=== PATIENT | female | born 1965 | race Caucasian/White ===

== ENCOUNTER 2023-04-03 08:26 | Inpatient (IN) ==
[2023-04-03] MEDS ORDERED: LIDOCAINE 1% 10 ML VIAL SQ ONE (08:27)
[2023-04-03] MEDS ORDERED: IOPAMIDOL 100 ML BOTTLE IV ONE (08:27)
[2023-04-03] MEDS ORDERED: diphenhydrAMINE 50 MG/ML VIAL IV ONE (08:54)
[2023-04-03] MEDS ORDERED: PROMETHAZINE 25 MG/ML VIAL IV ONE (08:54)
[2023-04-03] MEDS ORDERED: 0.9 % SODIUM CHLORIDE 1,000 ML IV ONE ×2 (08:54→09:16)
[2023-04-03] MEDS ORDERED: METOCLOPRAMIDE 10 MG/2 ML VIAL IV ONE (08:54)
[2023-04-03 09:10] LABS: POC Calcium, Ionized 1.12 (1.16-1.32); POC Creatinine 1.1 (0.6-1.2); POC Potassium 3.7 (3.3-5.1)
[2023-04-03 12:35] LABS: Basophils # (Auto) 0.02 K/mcL (0.00-0.30); Basophils % (Auto) 0.2 % (0.0-2.0); Eosinophils # (Auto) 0.09 K/mcL (0.00-0.70); Eosinophils % (Auto) 1.1 % (0.0-7.0); Hematocrit 35.6 % (34.1-44.9); Hemoglobin 10.8 g/dL (11.2-15.7); Lymphocytes # (Auto) 0.53 K/mcL (1.50-4.80); Lymphocytes % (Auto) 6.2 % (15.5-49.0); Mean Cell Volume 88.6 fL (80.0-100.0); Mean Corpuscular HGB Conc 30.3 g/dL (31.0-36.0); Mean Platelet Volume 9.2 fL (8.8-12.5); Monocytes # (Auto) 0.88 K/mcL (0.10-0.90); Monocytes % (Auto) 10.3 % (1.0-12.0); Neutrophils % (Auto) 81.6 % (38.0-78.0); Platelet Count 207 K/mcL (140-440); RBC 4.02 M/mcL (3.59-5.38); Red Cell Distribution Width 13.7 % (11.5-14.5); WBC 8.6 K/mcL (4.5-11.0)
[2023-04-03] MEDS ORDERED: ACETAMINOPHEN 1,000 MG/100 ML BAG IV ONE (14:34)
[2023-04-03] MEDS ORDERED: cefTRIAXone 2 GM in DEXTROSE 5% IN WATER 50 ML IV ONE (15:10)
[2023-04-03] MEDS ORDERED: VANCOMYCIN PER PHARMACY IV ONE (15:10)
[2023-04-03] MEDS ORDERED: AMPICILLIN SODIUM 2 GM VIAL IV SCH ×2 (15:15→19:30)
[2023-04-03] MEDS ORDERED: FUROSEMIDE 20 MG/2 ML VIAL IV ONE (15:48)
[2023-04-03 16:12] LABS: Alcohol, Blood < 10.0 mg/dL; Alcohol,Blood < 0.010 gm/dL (<0.010)
[2023-04-03 16:18] LABS: ALT/SGPT 13 U/L (<40); AST/SGOT 17 U/L (<32); Albumin 3.8 gm/dL (3.2-5.2); Alkaline Phosphatase 19 U/L (39-117); Bilirubin,Direct < 0.2 mg/dL (0-0.3); Bilirubin,Total 0.3 mg/dL (0.1-1.0); Globulin 2.9 gm/dL (2.2-3.7)
[2023-04-03] MEDS ORDERED: MIDAZOLAM 5 MG/5 ML VIAL IV ONE (16:25)
[2023-04-03] MEDS ORDERED: MIDAZOLAM 2 MG/2 ML VIAL ONE (16:26)
[2023-04-03] MEDS ORDERED: MIDAZOLAM 2 MG/2 ML VIAL IV ONE (16:30)
[2023-04-03] MEDS ORDERED: VANCOMYCIN 1,500 MG in 0.9 % SODIUM CHLORIDE 500 ML IV ONE (16:30)
[2023-04-03 16:42] LABS: Free T4 (Free Thyroxine) 1.28 ng/dL (0.93-1.70)
[2023-04-03 16:45] LABS: Thyroid Stimulating Hormone 2.28 uIU/mL (0.27-5.01)
[2023-04-03] MEDS ORDERED: AMPICILLIN SODIUM 2 GM in 0.9 % SODIUM CHLORIDE 100 ML IV ONE (17:15)
[2023-04-03] MEDS ORDERED: ACYCLOVIR SODIUM 500 MG VIAL IV STA (17:22)
[2023-04-03] MEDS ORDERED: ACYCLOVIR SODIUM 1,000 MG in 0.9 % SODIUM CHLORIDE 250 ML IV ONE (17:30)
[2023-04-03 18:12] LABS: Appearance,Urine CLEAR (Clear); Bilirubin,Urine Negative (Negative); Color,Urine YELLOW; Culture Indicated,Urine No; Glucose,Urine (UA) Negative (Negative); Ketones,Urine Negative (Negative); Leukocyte Esterase,Urine Negative /uL (Negative); Nitrate,Urine Negative (Negative); Protein,Urine Negative (Negative); Specific Gravity,Urine 1.029 (1.000-1.035); Urine Blood Negative (Negative); Urine RBC 0 /hpf (0-3); Urine Squamous Epithelial Cell 0 /hpf (0-4); Urine WBC < 1 /hpf (0-4); Urobilinogen,Urine Negative
[2023-04-03 18:26] LABS: Amphetamine Screen,Urine None detected; Barbiturate Screen,Urine None detected; Benzodiazepines Screen,Urine None detected; Cannabinoid Screen,Urine None detected; Cocaine Screen,Urine None detected; Opiate Screen,Urine None detected; Oxycodone, Urine Screen None detected; Phencyclidine Screen,Urine None detected
[2023-04-03 19:06] LABS: Glucose,CSF 50 mg/dL (40-70)
[2023-04-03 19:10] LABS: Appearance,CSF Clear; Nucleated Cells,CSF 2 /cumm (0-5); Red Blood Cell,CSF 14 /cumm (0-1)
[2023-04-03] MEDS ORDERED: oxyCODONE/APAP 5/325MG TABLET PO PRN (19:11)
[2023-04-03] MEDS ORDERED: ZOLPIDEM 5 MG TABLET PO PRN (19:11)
[2023-04-03] MEDS ORDERED: ONDANSETRON 4 MG ODT TABLET SL PRN (19:11)
[2023-04-03] MEDS ORDERED: MAGNESIUM HYDROXIDE 30 ML ORAL.SUSP PO PRN (19:11)
[2023-04-03] MEDS ORDERED: SENNOSIDES 1 TABLET PO PRN (19:11)
[2023-04-03] MEDS ORDERED: VANCOMYCIN 1,000 MG in 0.9 % SODIUM CHLORIDE 250 ML IV SCH (19:15)
[2023-04-03] MEDS ORDERED: cefTRIAXone 2 GM in DEXTROSE 5% IN WATER 50 ML IV SCH (19:15)
[2023-04-03] MEDS ORDERED: ALPRAZolam 0.5 MG TABLET PO PRN (19:24)
[2023-04-03] MEDS ORDERED: IPRATROPIUM/ALBUTEROL 3 ML AMPUL.NEB NEB ONE (19:33)
[2023-04-03] MEDS: LACTATED RINGERS 1,000 ML IV SCH (20:36)
[2023-04-03] MEDS: ACETAMINOPHEN 325 MG TABLET PO PRN (21:22)
[2023-04-03] MEDS ORDERED: ACYCLOVIR SODIUM 500 MG VIAL IV SCH (22:00)
[2023-04-03] MEDS: 0.9 % SODIUM CHLORIDE 10 ML SYRINGE IV SCH (23:02)
[2023-04-04] MEDS: HYDROcodone/APAP 10/325MG TABLET PO PRN ×3 (02:02→17:11)
[2023-04-04] MEDS: 0.9 % SODIUM CHLORIDE 10 ML SYRINGE IV SCH ×4 (05:47→20:45)
[2023-04-04] MEDS: LACTATED RINGERS 1,000 ML IV SCH ×3 (05:47→16:49)
[2023-04-04 06:08] LABS: Basophils # (Auto) 0.02 K/mcL (0.00-0.30); Basophils % (Auto) 0.3 % (0.0-2.0); Eosinophils # (Auto) 0.01 K/mcL (0.00-0.70); Eosinophils % (Auto) 0.2 % (0.0-7.0); Hemoglobin 10.1 g/dL (11.2-15.7); Lymphocytes # (Auto) 0.91 K/mcL (1.50-4.80); Lymphocytes % (Auto) 14.2 % (15.5-49.0); Mean Cell Volume 89.7 fL (80.0-100.0); Mean Corpuscular HGB Conc 30.6 g/dL (31.0-36.0); Mean Platelet Volume 9.1 fL (8.8-12.5); Monocytes # (Auto) 1.03 K/mcL (0.10-0.90); Monocytes % (Auto) 16.1 % (1.0-12.0); Neutrophils % (Auto) 68.6 % (38.0-78.0); Platelet Count 162 K/mcL (140-440); RBC 3.68 M/mcL (3.59-5.38); Red Cell Distribution Width 14.5 % (11.5-14.5); WBC 6.4 K/mcL (4.5-11.0)
[2023-04-04 06:35] LABS: Blood Urea Nitrogen 15 mg/dL (6-20); Calcium 8.4 mg/dL (8.6-10.4); Carbon Dioxide 25 mmol/L (22-30); Chloride 99 mmol/L (96-108); Glomerular Filtration Rate 62; Glucose 100 mg/dL (70-105); Phosphorous 5.4 mg/dL (2.5-4.5)
[2023-04-04] MEDS: OMEPRAZOLE 20 MG CAPSULE PO SCH (07:36)
[2023-04-04] MEDS: ACETAMINOPHEN 325 MG TABLET PO PRN ×2 (07:36→14:31)
[2023-04-04] MEDS ORDERED: RIZATRIPTAN 10 MG PO PRN (14:51)
[2023-04-04] MEDS: metFORMIN 500 MG TABLET PO SCH (16:51)
[2023-04-04] MEDS: ONDANSETRON 4 MG/2 ML VIAL IV PRN (17:10)
[2023-04-04] MEDS: HYDROXYCHLOROQUINE 200 MG TABLET PO SCH (20:40)
[2023-04-04] MEDS ORDERED: SIMVASTATIN 20 MG TABLET PO SCH (21:00)
[2023-04-05] MEDS: ONDANSETRON 4 MG/2 ML VIAL IV PRN ×2 (00:42→05:51)
[2023-04-05] MEDS: HYDROcodone/APAP 10/325MG TABLET PO PRN ×3 (01:00→10:05)
[2023-04-05] MEDS: LACTATED RINGERS 1,000 ML IV SCH (02:21)
[2023-04-05] MEDS: ACETAMINOPHEN 325 MG TABLET PO PRN (05:02)
[2023-04-05] MEDS: 0.9 % SODIUM CHLORIDE 10 ML SYRINGE IV SCH (05:04)
[2023-04-05] MEDS: OMEPRAZOLE 20 MG CAPSULE PO SCH (07:39)
[2023-04-05] MEDS: metFORMIN 500 MG TABLET PO SCH (07:39)
[2023-04-05] MEDS ORDERED: predniSONE 5 MG TABLET PO SCH (08:00)
[2023-04-05] MEDS: HYDROXYCHLOROQUINE 200 MG TABLET PO SCH (08:23)
[2023-04-05] MEDS ORDERED: DULoxetine 30 MG CAPSULE PO SCH (09:00)
[2023-04-05] MEDS ORDERED: [UNRECOGNIZED DRUG - OTHER] PO SCH (09:00)
[2023-04-05] MEDS ORDERED: amLODIPine 5 MG TABLET PO SCH (09:00)
[2023-04-05] MEDS ORDERED: FOLIC ACID 1 MG TABLET PO SCH (09:00)
== END 2023-04-05 10:50 | disposition home or self-care (01) | DRG 177 ==
LOC: ED 08:26 → ICU 20:57
PROVIDERS: ADMIT Internal Medicine; ATTEND Internal Medicine

== ENCOUNTER 2024-05-26 19:08 | Inpatient (IN) ==
[2024-05-26] MEDS: 0.9 % SODIUM CHLORIDE 1,000 ML IV ONE (19:35)
[2024-05-26] MEDS: ACETAMINOPHEN 1,000 MG/100 ML BAG IV ONE (19:43)
[2024-05-26 20:12] LABS: ABG Methemoglobin 0.1 % (0.4-1.5); Total Hemoglobin 11.8 gm/Dl (12.0-15.0); VBG Base Excess -4 (-2-3); VBG HCO3 20.3 mmol/L (24.0-28.0); VBG Oxygen Saturation 72.1 % (40.0-70.0); VBG PCO2 33.6 mmHg (41.0-51.0); VBG PO2 39.4 mmHg (25.0-40.0); VBG Total CO2 21.3 mmol/L (25.0-29.0)
[2024-05-26 20:14] LABS: Basophils # (Auto) 0.03 K/mcL (0.00-0.30); Basophils % (Auto) 0.3 % (0.0-2.0); Eosinophils # (Auto) 0.05 K/mcL (0.00-0.70); Eosinophils % (Auto) 0.4 % (0.0-7.0); Hematocrit 32.8 % (34.1-44.9); Hemoglobin 10.2 g/dL (11.2-15.7); Lymphocytes # (Auto) 1.03 K/mcL (1.50-4.80); Lymphocytes % (Auto) 8.9 % (15.5-49.0); Mean Cell Volume 84.5 fL (80.0-100.0); Mean Corpuscular HGB Conc 31.1 g/dL (31.0-36.0); Mean Platelet Volume 9.8 fL (8.8-12.5); Monocytes # (Auto) 1.25 K/mcL (0.10-0.90); Monocytes % (Auto) 10.8 % (1.0-12.0); Neutrophils % (Auto) 79.3 % (38.0-78.0); Platelet Count 203 K/mcL (140-440); RBC 3.88 M/mcL (3.59-5.38); WBC 11.6 K/mcL (4.5-11.0)
[2024-05-26 20:20] LABS: INR 1.5 (0.9-1.1)
[2024-05-26 20:26] LABS: ALT/SGPT 11 U/L (<40); AST/SGOT 18 U/L (<32); Albumin 3.9 gm/dL (3.2-5.2); Albumin/Globulin Ratio 1.6 (1.0-2.3); Alkaline Phosphatase 22 U/L (39-117); Bilirubin,Total 0.4 mg/dL (0.1-1.0); Blood Urea Nitrogen 8 mg/dL (6-20); Carbon Dioxide 22 mmol/L (22-30); Chloride 92 mmol/L (96-108); Globulin 2.5 gm/dL (2.2-3.7); Glomerular Filtration Rate 81; Glucose 110 mg/dL (70-105); Potassium 3.1 mmol/L (3.3-5.1); Sodium 131 mmol/L (133-145)
[2024-05-26 21:15] LABS: Appearance,Urine CLEAR (Clear); Bilirubin,Urine Negative (Negative); Color,Urine YELLOW; Glucose,Urine (UA) Negative (Negative); Ketones,Urine 5 mg/dL (Negative); Leukocyte Esterase,Urine Negative /uL (Negative); Mucus,Urine FEW /hpf; Nitrate,Urine Negative (Negative); Protein,Urine 30 mg/dL (Negative); Specific Gravity,Urine 1.015 (1.000-1.035); Urine Blood Negative (Negative); Urine Hyaline Cast 1 /lph (0-2); Urine RBC 1 /hpf (0-3); Urine Squamous Epithelial Cell < 1 /hpf (0-4); Urine WBC 1 /hpf (0-4); Urobilinogen,Urine Negative
[2024-05-26 21:33] LABS: Amphetamine Screen,Urine None detected; Barbiturate Screen,Urine None detected; Benzodiazepines Screen,Urine None detected; Cannabinoid Screen,Urine None detected; Cocaine Screen,Urine None detected; Fentanyl, Urine Screen None Detected; Opiate Screen,Urine Suspect Positive; Oxycodone, Urine Screen None detected; Phencyclidine Screen,Urine None detected
[2024-05-26] MEDS: cefTRIAXone 2 GM in DEXTROSE 5% IN WATER 50 ML IV ONE (21:57)
[2024-05-26] MEDS: DOXYCYCLINE 100 MG in DEXTROSE 5% IN WATER 100 ML IV ONE (22:29)
[2024-05-26] MEDS ORDERED: SENNOSIDES 1 TABLET PO PRN (23:17)
[2024-05-26] MEDS ORDERED: NALOXONE HCL 0.4 MG/ML VIAL IV PRN (23:17)
[2024-05-26] MEDS ORDERED: morphine 4 MG/ML VIAL IV PRN (23:17)
[2024-05-26] MEDS: MAGNESIUM SULFATE 2 GM/50 ML BAG IV ONE ×2 (23:52→23:53)
[2024-05-26] MEDS: LACTATED RINGERS 1,000 ML IV SCH (23:52)
[2024-05-26] MEDS: POTASSIUM CHLORIDE 20 MEQ PACKET PO ONE (23:53)
[2024-05-26] MEDS: POTASSIUM CHLORIDE 20 MEQ PACKET ONE (23:53)
[2024-05-26] MEDS: 0.9 % SODIUM CHLORIDE 1,000 ML IV SCH (23:53)
[2024-05-27] MEDS: ACETAMINOPHEN 325 MG TABLET PO PRN (01:21)
[2024-05-27] MEDS: ACETAMINOPHEN 325 MG TABLET PO ONE (01:27)
[2024-05-27] MEDS: 0.9 % SODIUM CHLORIDE 10 ML SYRINGE IV SCH (05:27)
[2024-05-27] MEDS: ONDANSETRON 4 MG/2 ML VIAL IV PRN (05:45)
[2024-05-27] MEDS: ONDANSETRON 4 MG/2 ML VIAL ONE (05:54)
[2024-05-27 06:47] LABS: Basophils # (Auto) 0.02 K/mcL (0.00-0.30); Basophils % (Auto) 0.3 % (0.0-2.0); Eosinophils # (Auto) 0.02 K/mcL (0.00-0.70); Eosinophils % (Auto) 0.3 % (0.0-7.0); Hematocrit 30.9 % (34.1-44.9); Hemoglobin 9.6 g/dL (11.2-15.7); Lymphocytes # (Auto) 0.55 K/mcL (1.50-4.80); Lymphocytes % (Auto) 8.1 % (15.5-49.0); Mean Cell Volume 85.8 fL (80.0-100.0); Mean Corpuscular HGB Conc 31.1 g/dL (31.0-36.0); Mean Platelet Volume 10.2 fL (8.8-12.5); Monocytes # (Auto) 0.75 K/mcL (0.10-0.90); Platelet Count 188 K/mcL (140-440); Red Cell Distribution Width 14.3 % (11.5-14.5); WBC 6.8 K/mcL (4.5-11.0)
[2024-05-27 06:56] LABS: INR 1.1 (0.9-1.1); Prothrombin Time 14.3 sec (11.9-14.5)
[2024-05-27 07:08] LABS: ALT/SGPT 12 U/L (<40); AST/SGOT 20 U/L (<32); Albumin 3.5 gm/dL (3.2-5.2); Albumin/Globulin Ratio 1.4 (1.0-2.3); Alkaline Phosphatase 18 U/L (39-117); Bilirubin,Direct < 0.2 mg/dL (0-0.3); Bilirubin,Total 0.3 mg/dL (0.1-1.0); Blood Urea Nitrogen 9 mg/dL (6-20); Calcium 8.5 mg/dL (8.6-10.4); Carbon Dioxide 18 mmol/L (22-30); Chloride 95 mmol/L (96-108); Globulin 2.5 gm/dL (2.2-3.7); Glomerular Filtration Rate 95; Glucose 99 mg/dL (70-105); Lactate Dehydrogenase 151 U/L (135-225); Phosphorous 5.5 mg/dL (2.5-4.5); Potassium 3.1 mmol/L (3.3-5.1); Sodium 133 mmol/L (133-145); Triglycerides 70 mg/dL (<150); Uric Acid 4.1 mg/dL (2.5-8.0)
[2024-05-27] MEDS: cefTRIAXone 1 GM VIAL IV SCH (08:58)
[2024-05-27] MEDS: ENOXAPARIN 40 MG/0.4 ML SYRINGE SQ SCH (08:58)
[2024-05-27] MEDS: POTASSIUM CHLORIDE 20 MEQ PACKET PO ONE (10:03)
[2024-05-27] MEDS: DOXYCYCLINE 100 MG in DEXTROSE 5% IN WATER 100 ML IV SCH (10:10)
[2024-05-27] MEDS: POTASSIUM CHLORIDE 20 MEQ TABLET PO SCH (10:25)
[2024-05-27] MEDS: OSELTAMIVIR PHOSPHATE 75 MG CAPSULE PO SCH (10:25)
[2024-05-27] MEDS ORDERED: cefTRIAXone 2 GM in DEXTROSE 5% IN WATER 50 ML IV SCH (11:00)
[2024-05-27] MEDS: cefTRIAXone 1 GM VIAL IV ONE (11:35)
[2024-05-27] MEDS: LACTATED RINGERS 1,000 ML IV SCH (11:36)
[2024-05-27] MEDS: hydrOXYzine 25 MG TABLET PO PRN (12:47)
[2024-05-27] MEDS: BENZOCAINE/MENTHOL 1 LOZENGE PO PRN (12:47)
[2024-05-27 14:28] LABS: Potassium 3.5 mmol/L (3.3-5.1)
[2024-05-27] MEDS: HYDROcodone/APAP 10/325MG TABLET PO SCH (14:53)
[2024-05-27] MEDS: ACETAMINOPHEN 500 MG TABLET PO PRN (17:09)
[2024-05-27] MEDS ORDERED: SUMAtriptan SUCCINATE 50 MG TABLET PO PRN (17:31)
[2024-05-27] MEDS: tiZANidine 4 MG TABLET PO SCH (18:06)
[2024-05-27] MEDS: prednisoLONE 1% OPHTH DROPS 1ML BOTTLE OD SCH (18:06)
[2024-05-27] MEDS: HYDROXYCHLOROQUINE 200 MG TABLET PO SCH (20:30)
[2024-05-27] MEDS: ZOLPIDEM 5 MG TABLET PO SCH (20:31)
[2024-05-27] MEDS: BENZONATATE 100 MG CAPSULE PO SCH (20:31)
[2024-05-27] MEDS: MELATONIN 3 MG TABLET PO SCH (20:33)
[2024-05-27] MEDS: HYDROcodone/APAP 10/325MG TABLET PO PRN (23:22)
[2024-05-28 06:28] LABS: Prothrombin Time 13.7 sec (11.9-14.5)
[2024-05-28 06:42] LABS: Basophils # (Auto) 0.04 K/mcL (0.00-0.30); Basophils % (Auto) 0.5 % (0.0-2.0); Eosinophils # (Auto) 0.09 K/mcL (0.00-0.70); Hematocrit 29.7 % (34.1-44.9); Hemoglobin 9.1 g/dL (11.2-15.7); Lymphocytes # (Auto) 0.73 K/mcL (1.50-4.80); Lymphocytes % (Auto) 8.4 % (15.5-49.0); Mean Cell Volume 86.6 fL (80.0-100.0); Mean Corpuscular HGB Conc 30.6 g/dL (31.0-36.0); Monocytes # (Auto) 0.54 K/mcL (0.10-0.90); Monocytes % (Auto) 6.2 % (1.0-12.0); Neutrophils % (Auto) 83.7 % (38.0-78.0); Platelet Count 163 K/mcL (140-440); RBC 3.43 M/mcL (3.59-5.38); WBC 8.7 K/mcL (4.5-11.0)
[2024-05-28 06:47] LABS: ALT/SGPT 14 U/L (<40); AST/SGOT 25 U/L (<32); Albumin 3.2 gm/dL (3.2-5.2); Albumin/Globulin Ratio 1.4 (1.0-2.3); Alkaline Phosphatase 15 U/L (39-117); Bilirubin,Direct < 0.2 mg/dL (0-0.3); Bilirubin,Total < 0.2 mg/dL (0.1-1.0); Blood Urea Nitrogen 7 mg/dL (6-20); Calcium 8.9 mg/dL (8.6-10.4); Carbon Dioxide 22 mmol/L (22-30); Chloride 98 mmol/L (96-108); Globulin 2.3 gm/dL (2.2-3.7); Glomerular Filtration Rate 81; Glucose 96 mg/dL (70-105); Lactate Dehydrogenase 174 U/L (135-225); Phosphorous 5.4 mg/dL (2.5-4.5); Potassium 4.3 mmol/L (3.3-5.1); Sodium 133 mmol/L (133-145); Triglycerides 72 mg/dL (<150); Uric Acid 4.8 mg/dL (2.5-8.0)
[2024-05-28] MEDS: PANTOPRAZOLE 40 MG TABLET PO SCH (07:20)
[2024-05-28] MEDS ORDERED: cefTRIAXone 1 GM VIAL IV SCH (09:00)
[2024-05-28] MEDS: CALCIUM W/VIT D3 500 MG TABLET PO SCH (10:22)
[2024-05-28] MEDS: DULoxetine 30 MG CAPSULE PO SCH (10:23)
[2024-05-28] MEDS: predniSONE 5 MG TABLET PO SCH (10:27)
[2024-05-28] MEDS: cefTRIAXone 2 GM in DEXTROSE 5% IN WATER 50 ML IV SCH (10:28)
[2024-05-28] MEDS: amLODIPine 5 MG TABLET PO SCH (10:45)
[2024-05-28] MEDS: FLUTICASONE PROPIONATE SPRAY.NAS NS SCH (10:57)
[2024-05-28] MEDS: [UNRECOGNIZED DRUG - OTHER] PO SCH (10:57)
[2024-05-29 06:35] LABS: Prothrombin Time 13.5 sec (11.9-14.5)
[2024-05-29 06:43] LABS: Basophils # (Auto) 0.02 K/mcL (0.00-0.30); Basophils % (Auto) 0.4 % (0.0-2.0); Eosinophils % (Auto) 1.9 % (0.0-7.0); Hematocrit 28.7 % (34.1-44.9); Hemoglobin 8.7 g/dL (11.2-15.7); Lymphocytes % (Auto) 19.3 % (15.5-49.0); Mean Corpuscular HGB Conc 30.3 g/dL (31.0-36.0); Mean Platelet Volume 10.3 fL (8.8-12.5); Monocytes # (Auto) 0.55 K/mcL (0.10-0.90); Monocytes % (Auto) 10.6 % (1.0-12.0); Neutrophils % (Auto) 67.6 % (38.0-78.0); Platelet Count 174 K/mcL (140-440); WBC 5.2 K/mcL (4.5-11.0)
[2024-05-29 06:51] LABS: ALT/SGPT 12 U/L (<40); AST/SGOT 23 U/L (<32); Albumin 3.1 gm/dL (3.2-5.2); Albumin/Globulin Ratio 1.2 (1.0-2.3); Alkaline Phosphatase 13 U/L (39-117); Bilirubin,Direct < 0.2 mg/dL (0-0.3); Bilirubin,Total < 0.2 mg/dL (0.1-1.0); Blood Urea Nitrogen 9 mg/dL (6-20); Calcium 8.6 mg/dL (8.6-10.4); Carbon Dioxide 20 mmol/L (22-30); Chloride 99 mmol/L (96-108); Globulin 2.5 gm/dL (2.2-3.7); Glomerular Filtration Rate 95; Glucose 94 mg/dL (70-105); Lactate Dehydrogenase 184 U/L (135-225); Phosphorous 4.2 mg/dL (2.5-4.5); Sodium 135 mmol/L (133-145); Triglycerides 83 mg/dL (<150); Uric Acid 4.8 mg/dL (2.5-8.0)
[2024-05-29] MEDS: FOLIC ACID 1 MG TABLET PO SCH (08:09)
[2024-05-29] MEDS: NYSTATIN POWDER BOTTLE 15GM TOPICAL SCH (09:52)
[2024-05-29] MEDS: IPRATROPIUM/ALBUTEROL 3 ML AMPUL.NEB NEB SCH (12:21)
[2024-05-29] MEDS: MAGNESIUM SULFATE 2 GM/50 ML BAG IV ONE (19:29)
[2024-05-29] MEDS: CEFDINIR 300 MG CAPSULE PO SCH (21:16)
[2024-05-29] MEDS: DOXYCYCLINE HYCLATE 100 MG TABLET.ORL PO SCH (21:17)
[2024-05-30 07:23] LABS: Basophils # (Auto) 0.02 K/mcL (0.00-0.30); Basophils % (Auto) 0.4 % (0.0-2.0); Eosinophils % (Auto) 2.2 % (0.0-7.0); Hematocrit 29.4 % (34.1-44.9); Hemoglobin 9.1 g/dL (11.2-15.7); Lymphocytes # (Auto) 1.35 K/mcL (1.50-4.80); Lymphocytes % (Auto) 29.1 % (15.5-49.0); Mean Cell Volume 85.2 fL (80.0-100.0); Mean Platelet Volume 10.6 fL (8.8-12.5); Monocytes # (Auto) 0.49 K/mcL (0.10-0.90); Monocytes % (Auto) 10.6 % (1.0-12.0); Neutrophils % (Auto) 57.5 % (38.0-78.0); Platelet Count 200 K/mcL (140-440); RBC 3.45 M/mcL (3.59-5.38); Red Cell Distribution Width 14.1 % (11.5-14.5); WBC 4.6 K/mcL (4.5-11.0)
[2024-05-30 07:28] LABS: INR 0.9 (0.9-1.1); Prothrombin Time 12.9 sec (11.9-14.5)
[2024-05-30 07:51] LABS: ALT/SGPT 12 U/L (<40); AST/SGOT 21 U/L (<32); Albumin 3.5 gm/dL (3.2-5.2); Albumin/Globulin Ratio 1.4 (1.0-2.3); Alkaline Phosphatase 14 U/L (39-117); Bilirubin,Direct < 0.2 mg/dL (0-0.3); Bilirubin,Total < 0.2 mg/dL (0.1-1.0); Blood Urea Nitrogen 7 mg/dL (6-20); Calcium 9.2 mg/dL (8.6-10.4); Carbon Dioxide 22 mmol/L (22-30); Chloride 100 mmol/L (96-108); Globulin 2.5 gm/dL (2.2-3.7); Glomerular Filtration Rate 100; Glucose 95 mg/dL (70-105); Lactate Dehydrogenase 207 U/L (135-225); Phosphorous 4.7 mg/dL (2.5-4.5); Sodium 138 mmol/L (133-145); Triglycerides 100 mg/dL (<150); Uric Acid 4.6 mg/dL (2.5-8.0)
[2024-06-03 15:08] LABS: Opiate Screen Negative ng/mL (Cutoff=300)
== END 2024-05-30 11:34 | disposition home or self-care (01) | DRG 193 ==
LOC: ED 19:08 → MEDSUR 19:08
PROVIDERS: ADMIT Student in an Organized Health Care Education/Training Program; ATTEND Student in an Organized Health Care Education/Training Program

== ENCOUNTER 2024-07-16 15:27 | Inpatient (IN) ==
[2024-07-16] MEDS ORDERED: IOPAMIDOL 100 ML BOTTLE IV ONE (15:28)
[2024-07-16] MEDS: ONDANSETRON 4 MG/2 ML VIAL IV ONE (16:21)
[2024-07-16] MEDS: 0.9 % SODIUM CHLORIDE 1,000 ML IV ONE (16:21)
[2024-07-16 16:31] LABS: Basophils # (Auto) 0.07 K/mcL (0.00-0.30); Basophils % (Auto) 0.3 % (0.0-2.0); Eosinophils # (Auto) 0.51 K/mcL (0.00-0.70); Eosinophils % (Auto) 2.4 % (0.0-7.0); Hematocrit 37.6 % (34.1-44.9); Hemoglobin 11.8 g/dL (11.2-15.7); Lymphocytes # (Auto) 3.27 K/mcL (1.50-4.80); Lymphocytes % (Auto) 15.3 % (15.5-49.0); Mean Cell Volume 81.6 fL (80.0-100.0); Mean Corpuscular HGB Conc 31.4 g/dL (31.0-36.0); Mean Platelet Volume 9.5 fL (8.8-12.5); Monocytes # (Auto) 1.32 K/mcL (0.10-0.90); Monocytes % (Auto) 6.2 % (1.0-12.0); Neutrophils % (Auto) 75.3 % (38.0-78.0); Platelet Count 350 K/mcL (140-440); RBC 4.61 M/mcL (3.59-5.38); WBC 21.4 K/mcL (4.5-11.0)
[2024-07-16 16:50] LABS: ALT/SGPT 6 U/L (<40); AST/SGOT 12 U/L (<32); Albumin 4.1 gm/dL (3.2-5.2); Albumin/Globulin Ratio 1.3 (1.0-2.3); Alkaline Phosphatase 23 U/L (39-117); Bilirubin,Total 0.4 mg/dL (0.1-1.0); Blood Urea Nitrogen 5 mg/dL (6-20); Calcium 10.3 mg/dL (8.6-10.4); Carbon Dioxide 17 mmol/L (22-30); Chloride 91 mmol/L (96-108); Globulin 3.2 gm/dL (2.2-3.7); Glomerular Filtration Rate 100; Glucose 103 mg/dL (70-105); Potassium 3.4 mmol/L (3.3-5.1); Sodium 131 mmol/L (133-145)
[2024-07-16] MEDS: CIPROFLOXACIN 400 MG/200 ML BAG IV ONE (17:19)
[2024-07-16] MEDS: LACTATED RINGERS 1,000 ML IV ONE (20:25)
[2024-07-16] MEDS ORDERED: ZOLPIDEM 5 MG TABLET PO PRN (21:14)
[2024-07-16] MEDS ORDERED: IPRATROPIUM/ALBUTEROL 3 ML AMPUL.NEB NEB PRN (21:14)
[2024-07-16] MEDS: VANCOMYCIN 125 MG CAPSULE PO SCH (22:03)
[2024-07-16] MEDS: ACETAMINOPHEN 325 MG TABLET PO PRN (22:03)
[2024-07-16] MEDS: HEPARIN 5,000 UNIT/ML VIAL SQ SCH (22:03)
[2024-07-16] MEDS: MELATONIN 3 MG TABLET PO SCH (22:03)
[2024-07-16] MEDS: 0.9 % SODIUM CHLORIDE 10 ML SYRINGE IV SCH (22:04)
[2024-07-16] MEDS ORDERED: DEXTROSE 31 GM ORAL.SUSP PO PRN (22:13)
[2024-07-16] MEDS ORDERED: DEXTROSE 50% 50 ML VIAL IV PRN (22:13)
[2024-07-16] MEDS: ONDANSETRON 4 MG/2 ML VIAL IV PRN (22:41)
[2024-07-17] MEDS: tiZANidine 4 MG TABLET PO SCH (01:22)
[2024-07-17 06:32] LABS: Basophils # (Auto) 0.05 K/mcL (0.00-0.30); Basophils % (Auto) 0.3 % (0.0-2.0); Eosinophils # (Auto) 0.66 K/mcL (0.00-0.70); Eosinophils % (Auto) 4.5 % (0.0-7.0); Hematocrit 33.7 % (34.1-44.9); Hemoglobin 10.6 g/dL (11.2-15.7); Lymphocytes # (Auto) 2.25 K/mcL (1.50-4.80); Lymphocytes % (Auto) 15.4 % (15.5-49.0); Mean Cell Volume 81.8 fL (80.0-100.0); Mean Corpuscular HGB Conc 31.5 g/dL (31.0-36.0); Mean Platelet Volume 10.6 fL (8.8-12.5); Monocytes # (Auto) 0.75 K/mcL (0.10-0.90); Monocytes % (Auto) 5.1 % (1.0-12.0); Neutrophils % (Auto) 74.2 % (38.0-78.0); Platelet Count 312 K/mcL (140-440); RBC 4.12 M/mcL (3.59-5.38); Red Cell Distribution Width 15.2 % (11.5-14.5); WBC 14.6 K/mcL (4.5-11.0)
[2024-07-17] MEDS ORDERED: PATIENTS OWN MEDICATION 1 DOSE MISCELL PO PRN (06:38)
[2024-07-17 07:19] LABS: C-Reactive Protein 7.46 mg/dL (0.03-0.80)
[2024-07-17 07:21] LABS: ALT/SGPT < 5 U/L (<40); AST/SGOT 10 U/L (<32); Albumin 3.6 gm/dL (3.2-5.2); Albumin/Globulin Ratio 1.2 (1.0-2.3); Alkaline Phosphatase 20 U/L (39-117); Bilirubin,Total 0.3 mg/dL (0.1-1.0); Blood Urea Nitrogen 3 mg/dL (6-20); Calcium 9.8 mg/dL (8.6-10.4); Carbon Dioxide 18 mmol/L (22-30); Chloride 96 mmol/L (96-108); Globulin 2.9 gm/dL (2.2-3.7); Glomerular Filtration Rate 106; Glucose 90 mg/dL (70-105); Potassium 3.5 mmol/L (3.3-5.1); Sodium 133 mmol/L (133-145)
[2024-07-17] MEDS: INSULIN LISPRO 1 UNIT/0.01 ML UNIT SQ SCH (07:46)
[2024-07-17] MEDS: PANTOPRAZOLE 40 MG TABLET PO SCH (07:59)
[2024-07-17] MEDS: HYDROcodone/APAP 10/325MG TABLET PO SCH (08:48)
[2024-07-17] MEDS: predniSONE 5 MG TABLET PO SCH (08:48)
[2024-07-17] MEDS: SIMVASTATIN 20 MG TABLET PO SCH (08:48)
[2024-07-17] MEDS: HYDROXYCHLOROQUINE 200 MG TABLET PO SCH (08:49)
[2024-07-17] MEDS: DULoxetine 30 MG CAPSULE PO SCH (08:49)
[2024-07-17] MEDS: FOLIC ACID 1 MG TABLET PO SCH (08:49)
[2024-07-17] MEDS: CIPROFLOXACIN 400 MG/200 ML BAG IV SCH (08:50)
[2024-07-17] MEDS: NYSTATIN 500,000 UNITS/5 ML ORAL.SUSP SSW SCH (10:31)
[2024-07-17] MEDS: CALCIUM W/VIT D3 500 MG TABLET PO SCH ×2 (10:31→10:43)
[2024-07-17] MEDS: amLODIPine 5 MG TABLET PO SCH (10:31)
[2024-07-17] MEDS: MAGNESIUM SULFATE 2 GM/50 ML BAG IV SCH (10:32)
[2024-07-17] MEDS: [UNRECOGNIZED DRUG - OTHER] PO SCH (10:34)
[2024-07-17] MEDS: CARBOXYMETHYLCELLULOSE SODIUM 1 EACH DROPER.GEL OP SCH (11:15)
[2024-07-17] MEDS: LACTATED RINGERS 1,000 ML IV SCH (12:31)
[2024-07-17] MEDS ORDERED: tiZANidine 4 MG TABLET PO PRN (14:06)
[2024-07-17] MEDS ORDERED: CYCLOBENZAPRINE 10 MG TABLET PO PRN (14:37)
[2024-07-17] MEDS: HYDROcodone/APAP 10/325MG TABLET PO PRN (21:11)
[2024-07-18] MEDS: PROCHLORPERAZINE 10 MG/2 ML VIAL IV ONE (03:33)
[2024-07-18 07:33] LABS: Basophils # (Auto) 0.03 K/mcL (0.00-0.30); Basophils % (Auto) 0.3 % (0.0-2.0); Eosinophils # (Auto) 0.71 K/mcL (0.00-0.70); Eosinophils % (Auto) 6.4 % (0.0-7.0); Hematocrit 30.3 % (34.1-44.9); Hemoglobin 9.4 g/dL (11.2-15.7); Lymphocytes % (Auto) 14.5 % (15.5-49.0); Mean Cell Volume 82.1 fL (80.0-100.0); Mean Platelet Volume 10.1 fL (8.8-12.5); Monocytes # (Auto) 0.64 K/mcL (0.10-0.90); Monocytes % (Auto) 5.8 % (1.0-12.0); Neutrophils % (Auto) 72.8 % (38.0-78.0); Platelet Count 254 K/mcL (140-440); RBC 3.69 M/mcL (3.59-5.38); WBC 11.1 K/mcL (4.5-11.0)
[2024-07-18 07:44] LABS: C-Reactive Protein 5.36 mg/dL (0.03-0.80)
[2024-07-18 07:54] LABS: ALT/SGPT 5 U/L (<40); AST/SGOT 10 U/L (<32); Albumin 3.5 gm/dL (3.2-5.2); Albumin/Globulin Ratio 1.4 (1.0-2.3); Alkaline Phosphatase 20 U/L (39-117); Bilirubin,Total 0.2 mg/dL (0.1-1.0); Blood Urea Nitrogen 5 mg/dL (6-20); Calcium 9.8 mg/dL (8.6-10.4); Carbon Dioxide 22 mmol/L (22-30); Chloride 98 mmol/L (96-108); Globulin 2.5 gm/dL (2.2-3.7); Glomerular Filtration Rate 100; Glucose 86 mg/dL (70-105); Potassium 3.7 mmol/L (3.3-5.1); Sodium 134 mmol/L (133-145)
[2024-07-18] MEDS: PROMETHAZINE 25 MG TABLET PO PRN (12:14)
[2024-07-18] MEDS: MAGNESIUM SULFATE 2 GM/50 ML BAG IV SCH (12:17)
[2024-07-18] MEDS: CIPROFLOXACIN 500 MG TABLET PO SCH (20:43)
[2024-07-19 07:15] LABS: ALT/SGPT < 5 U/L (<40); AST/SGOT 10 U/L (<32); Albumin 3.4 gm/dL (3.2-5.2); Albumin/Globulin Ratio 1.2 (1.0-2.3); Alkaline Phosphatase 19 U/L (39-117); Bilirubin,Total < 0.2 mg/dL (0.1-1.0); Blood Urea Nitrogen 4 mg/dL (6-20); C-Reactive Protein 4.11 mg/dL (0.03-0.80); Calcium 9.5 mg/dL (8.6-10.4); Carbon Dioxide 22 mmol/L (22-30); Chloride 98 mmol/L (96-108); Globulin 2.8 gm/dL (2.2-3.7); Glomerular Filtration Rate 106; Glucose 91 mg/dL (70-105); Potassium 3.5 mmol/L (3.3-5.1); Sodium 134 mmol/L (133-145)
[2024-07-19 08:16] LABS: Basophils # (Auto) 0.09 K/mcL (0.00-0.30); Basophils % (Auto) 0.9 % (0.0-2.0); Eosinophils # (Auto) 0.62 K/mcL (0.00-0.70); Eosinophils % (Auto) 6.2 % (0.0-7.0); Lymphocytes # (Auto) 1.91 K/mcL (1.50-4.80); Lymphocytes % (Auto) 19.1 % (15.5-49.0); Mean Cell Volume 82.7 fL (80.0-100.0); Mean Corpuscular HGB Conc 31.3 g/dL (31.0-36.0); Mean Platelet Volume 11.3 fL (8.8-12.5); Monocytes # (Auto) 0.58 K/mcL (0.10-0.90); Monocytes % (Auto) 5.8 % (1.0-12.0); Neutrophils % (Auto) 67.2 % (38.0-78.0); Platelet Count 225 K/mcL (140-440); RBC 3.87 M/mcL (3.59-5.38); Red Cell Distribution Width 15.4 % (11.5-14.5)
[2024-07-19] MEDS: VANCOMYCIN 125 MG CAPSULE PO SCH (08:33)
== END 2024-07-19 12:29 | disposition home or self-care (01) | DRG 372 ==
LOC: ED 15:27 → MEDSUR 21:11
PROVIDERS: ADMIT Student in an Organized Health Care Education/Training Program; ATTEND Student in an Organized Health Care Education/Training Program